=== PATIENT | female | born 1995 | race Caucasian/White ===

== ENCOUNTER 2017-04-17 00:04 | Emergency (ER) | payer OTHER ==
[~2017-04-17] VITALS: Ht 152.4 cm; Wt 78.6 kg
[~2017-04-17 00:04] MED LIST: AMITRIPTYLINE H10 MG PO; ENDOCET 5-3251 EACH PO; MOTRIN800 MG PO; [UNRECOGNIZED DRUG - OTHER]
[2017-04-17] MEDS ORDERED: FLEXERIL5 MG PO (01:37)
[2017-04-17 01:49] VITALS: BP 146/99
== END 2017-04-17 01:51 | disposition home or self-care (01) ==
LOC: EME 00:04
DX: S13.4XXA Sprain of ligaments of cervical spine, initial encounter (principal); R51 Headache; R42 Dizziness and giddiness; V44.6XXA Car passenger injured in collision with heavy transport vehicle or bus in traffic accident, initial encounter; Y92.410 Unspecified street and highway as the place of occurrence of the external cause
CPT/HCPCS: 70450; 72125; 99281; 99284